=== PATIENT | female | born 1995 | race Caucasian/White ===

== ENCOUNTER 2017-12-08 18:38 | Day surgery (SDC) | payer OTHER ==
[2017-12-08 19:36] VITALS: BMI 48.8
--- NOTE | 2017-12-08 20:40 | PDOC.FPROB ---
FMR OB H&P: HPI - History of Present Illness Chief Complaint: vaginal and right leg pain History of Present Illness: 22YO female @ 31.5 weeks by 11.3 week debby presents complaining of vaginal and right leg pain that has been ongoing for the last few days but has gotten significantly worse today. The patient states that the pain began a few days ago after she used the bathroom on a public bus. She reports the pain as being episodic lasting 10 minutes or more, 9/10 in severity, and sometimes dull or pressure-like and other times sharp in character. She says that the pain is exacerbated by urinating and occasionally relieved by drinking water. Also says that the pain radiates down her right leg. Denies any associated vaginal bleeding, discharge or leaking fluid. Says she has never had an STI and was last sexually active 2 weeks ago. Also denies any associated fever/chills, SOB, chest or abdominal pain but does endorse dysuria. FMR OB H&P: Current - Care : 3 Para: 2 Gestational age: 31.5 weeks by 11.3 week debby Due date: Course/Complications: Uncomplicated . - OB Labs Blood type: O RH: positive Antibody Screen: negative HIV: negative RPR: negative HepBsAg: negative Rubella: immune Quad screen: negative Gonorrhea: negative Chlamydia: negative 1 hour gtt: 109 A1c: 4.6 FMR OB H&P: History - Past Medical History PMH: None. - OB History OB History: 2 previous deliveries were at term via . History of UTIs in previous pregnancies. - MEDICAL CSR History MEDICAL CSR History: No history of previous STIs. - Surgical History Sx History: C/S x 2 - Social History Social History: No current tobacco, EtOH or drug abuse. FMR OB H&P: Medications - Current Home Medications: Medication Instructions Recorded Confirmed Type Vitamin 1 tab PO DAILY tab 07/22/16 12/08/17 Rx Fluconazole [Diflucan] 150 mg PO ONE #1 tablet 12/08/17 Rx Allergies/Adverse Reactions: Allergies Allergy/AdvReac Type Severity Reaction Status Date / Time No Known Allergies Allergy Verified 12/08/17 19:28 FMR OB H&P: ROS - Review of Systems General: denies: fever/chills Cardiovascular: denies: chest pain, edema Respiratory: denies: shortness of breath Gastrointestinal: reports: nausea. denies: abdominal pain, diarrhea, constipation Genitourinary (Female): reports: dysuria, vaginal pain, vaginal pressure. denies: hematuria, vaginal discharge, vaginal bleeding, contractions Musculoskeletal: reports: pain, tenderness FMR OB H&P: Physical Exam - Physical Exam General: NAD, awake, alert and oriented HEENT: normocephalic and atraumatic Heart: RRR, normal S1/S2, no edema General: CTAB, no respiratory distress Abdomen: soft, gravid, non-tender, bowel sound present Musculoskeletal: FROM in all four extremities, other (Pain to palpation in R thigh and calf. Full ROM and sensation. No swelling or erythema noted.) Neurological: cranial nerves II through XII intact, sensation to pain,touch and proprioception grossly normal, no focal deficit Skin: no rash, good tugor - Pelvic Exam Vulva: normal hair distribution, no discharge, no blood, normal rugae (No erythema or irritation of vuvla or vaginal vault. No discharge noted on speculum exam.) FMR OB H&P: A/P - Problem List (1) Vaginal pain Current Visit: Yes Status: Acute Code(s): R10.2 - PELVIC AND PERINEAL PAIN Assessment and Plan: - Likely due to a UTI but cannot r/o a STI, BV or candidiasis. No concern for abruption or labor at this time as patient had no contractions on NST, FHT was reactive, and there was no vaginal bleeding or abdominal pain on exam. - Straight cath urine was done & UA was clear. Urine Cx pending. - Performed a speculum & obtained VP3 & G/C swabs. Will f/u with patients regarding any positive test results. - Will prophylactically treat for candidiasis w/ 150mg PO diflucan now & prescribe a second dose to take at home. - Will instruct patient to follow-up with PCP within 1 week. (2) Current Visit: Yes Status: Acute Qualifiers: Weeks of gestation: 31 weeks Qualified Code(s): Z3A.31 - 31 weeks gestation of Assessment and Plan: 22YO @ 31.5 weeks by 11.3 week sono. - Uncomplicated . - No concern for labor at this time. - Will instruct to follow-up with PCP for routine care. Discussion: Date/Time: 12/08/172038 This H&P was discussed with Dr. Johnson and Dr. Parra who agree with the above documentation and plan.
[2017-12-08 21:32] LABS: Bilirubin Negative (Negative); Blood, Urine Negative (Negative); Clarity CLEAR (Clear); Glucose, Urine (Dipstick) Negative (Negative); Leukocyte Negative (Negative); Nitrite Negative (Negative); Protein, Urine (Dipstick) Negative (Neg-Trace); Urobilinogen 0.2 mg/dL (0.2-1.0)
[2017-12-08] MEDS ORDERED: Fluconazole 100 MG TAB PO SCH (21:33)
[2017-12-08 21:34] LABS: Bacteria/HPF None Seen HPF (None Seen); Hyaline Casts/LPF 4-6 HYALINE CAST LPF (0-3 Hyaline); Pathc Cast-AUWi Flag 1.74 (0-2.49); RBC/HPF None Seen HPF (0-3); Squamous Epithelial 0-3 HPF (0-3); WBC/HPF 0-3 HPF (0-3)
[2017-12-09 23:19] LABS: Chlamydia by PCR Not Detected (NotDetected); GC by PCR Not Detected (NotDetected)
== END 2017-12-08 22:20 | disposition home or self-care (01) ==
LOC: L&D/OP 18:38
PROVIDERS: ATTEND Student in an Organized Health Care Education/Training Program
DX: O99.89 Other specified diseases and conditions complicating pregnancy, childbirth and the puerperium (principal); R10.2 Pelvic and perineal pain; Z3A.31 31 weeks gestation of pregnancy
CPT/HCPCS: 51701; 81001; 87086; 87480; 87491; 87510; 87591; 87660; 99284

== ENCOUNTER 2018-01-28 05:57 | Inpatient (IN) | payer OTHER ==
--- NOTE | 2018-01-27 14:49 | PDOC.LDHP ---
Labor and Delivery H&P Chief complaint: scheduled section HPI: 22 y/o @ 39w0d by 11w3d renayo presents for scheduled section. The patient has 2 prior c-sections. She reports contractions that started two days ago and are every 5 minutes. She denies LOF, vaginal bleeding, vaginal d/c , headaches, vision changes, LE swelling. Reports movement. Current gestational age (weeks): 39 (39w0d) Due date: 02/04/18 Dating criteria: first trimester ultrasound Grav: 3 Para: 2 OB History Details: 2 prior term c-sections Current complications: none Abnormal US findings: Yes (Hadlock 95%tile, Polyhydramnios (now resolved)) Past Medical History: MDD, not currently depressed Current medications: pre-zac vitamins Previous surgical history: low tranverse CS (x2) Social history: none - Physical Exam Vital signs reviewed and normal: yes General: NAD, resting Heart: RRR Lungs: CTAB Abdomen: gravid Extremeties: no edema FHT: category 1 (baseline 120-125), variability present (mod variability) - OB Labs Blood type: A RH: positive Antibody Screen: negative HIV: negative RPR: negative HEPSAg: negative 1 hour GCT: negative GBS: negative Urine drug screen: not done Rubella: immune Additional Labs: Zika negative - Assessment L&D Assessment: scheduled repeat section - Plan Plan: to OR for section, informed consent obtained, anesthesia consult for pain management -: -LR @ 125 -Ancef for prophylaxis <Kae Dow - Last Filed: 01/28/18 06:56> <Tom Carbajal - Last Filed: 01/28/18 11:47> Allergies/Adverse Reactions: Allergies Allergy/AdvReac Type Severity Reaction Status Date / Time No Known Allergies Allergy Verified 01/28/18 06:56 Attending Addendum - Attending Addendum Date/Time: 01/28/18 1147 I personally evaluated the patient and discussed the management with Dr. Dow. I agree with the History, Examination, Assessment and Plan documented above with any addition or exceptions noted below. <Tom Carbajal - Last Filed: 01/28/18 11:47>
[~2018-01-28 05:57] MED LIST: Bicitra 30 ML UDCUP PO SCH; CEFAZOLIN/Water 2 GM/20 ML SYRINGE SLOW IVP SCH; Ondansetron HCl/PF 4 MG/2 ML Vial IVP PRN; Promethazine HCl 25 MG/ML VIAL IM PRN
[2018-01-28] MEDS: Lactated Ringer's 1,000 ML IV SCH ×2 (06:30→14:18)
[2018-01-28] MEDS ORDERED: Morphine PF 1 MG/ML SYR ONE (06:37)
[2018-01-28] MEDS ORDERED: Fentanyl 100 MCG/2 ML VIAL ONE (06:37)
[2018-01-28 06:39] LABS: Mean Corpuscular HGB CONC 32.8 g/dL (32.0-36.0); Mean Corpuscular Hemoglobin 27.6 pg (27.0-31.0); Mean Platelet Volume 9.7 fL (7.4-10.4); Platelet Count 244 thou/uL (130-400); RBC Distribution Width 14.6 % (11.5-14.5); Red Blood Cell (RBC) Count 4.34 mill/uL (4.20-5.40); White Blood Cell (WBC) Count 8.8 thou/uL (4.8-10.8)
[2018-01-28] MEDS ORDERED: Succinylcholine Chloride 20 MG/ML 10 ml SYRINGE FS ONE (06:39)
[2018-01-28] MEDS ORDERED: Oxytocin 10 UNITS/ML VIAL ONE ×3 (06:39→09:24)
[2018-01-28] MEDS ORDERED: PHENYLEPHRINE-NS 100 MCG/ML 10 ML SYRINGE ONE (06:39)
[2018-01-28] MEDS ORDERED: Ondansetron HCl/PF 4 MG/2 ML Vial ONE ×4 (06:39→09:58)
[2018-01-28] MEDS ORDERED: ePHEDrine/0.9% NaCl/PF SYRINGE 50 mg/10 ml ONE ×3 (07:12→09:58)
[2018-01-28 07:17] LABS: HBSAg Index 0.16 S/CO (0-0.99); Hep B Surf Ag Non-Reactive S/CO (NonReactive); Syphilis Antibody Nonreactive (Nonreactive); Syphilis Antibody Index 0.58 S/CO (<1.00 Non-Reactive)
[2018-01-28] MEDS ORDERED: Bupivacaine 0.75% W/DEXTROSE 8.25% 2 ML AMP ONE (07:17)
[2018-01-28] MEDS ORDERED: Lidocaine 2% PF Inj 2 ML VIAL ONE ×3 (07:28→07:29)
[2018-01-28] MEDS ORDERED: Glycopyrrolate 0.2 MG/ML 5 ML SYRINGE ONE (08:11)
[2018-01-28] MEDS ORDERED: Atropine Sulfate 1 mg/10 ml Syringe ONE (08:11)
[2018-01-28] MEDS ORDERED: diphenhydrAMINE 50 MG/ML VIAL IVP PRN (08:53)
[2018-01-28] MEDS ORDERED: Ondansetron HCl/PF 4 MG/2 ML Vial IVP PRN ×2 (08:53→10:16)
[2018-01-28] MEDS ORDERED: Ketorolac Tromethamine 30 MG/ML VIAL IVP PRN (08:53)
[2018-01-28] MEDS ORDERED: Promethazine HCl 25 MG SUPP PR PRN (08:53)
[2018-01-28] MEDS ORDERED: Naloxone HCl 0.4 mg/ml Vial IVP PRN ×2 (08:53)
[2018-01-28] MEDS ORDERED: Eucerin (Mineral Oil/Petrolatum,White) 30 gm Jar TOP PRN (08:53)
[2018-01-28] MEDS ORDERED: Naloxone HCl 0.4 mg/ml Vial IV PRN (08:53)
[2018-01-28] MEDS ORDERED: Promethazine HCl 25 MG/ML VIAL IM PRN (08:53)
[2018-01-28] MEDS ORDERED: Midazolam HCl 2 mg/2 ml Vial ONE (08:58)
[2018-01-28] MEDS ORDERED: Communication Order-Pharmacy FS SCH (09:00)
[2018-01-28] MEDS ORDERED: Ketamine 50 MG/ML VIAL ONE (09:13)
[2018-01-28] MEDS ORDERED: Ketorolac Tromethamine 30 MG/ML VIAL ONE ×2 (09:43→09:58)
--- NOTE | 2018-01-28 09:57 | PDOC.OPDEL ---
OB Operative/Delivery Note Delivery Dr/Surgeon: Dr. Dow, Dr. Roque, with Dr. Carbajal attending Pre-Delivery Diagnosis: scheduled section Procedure/Post Delivery Dx: primary low transverse CS Weeks gestation: 39 (39w0d) Anesthesia: spinal - Findings A Sex: male Weight: 3.885 kg - 1 min: 8 - 5 min: 9 - Additional Findings/Plan Placenta delivered: spontaneous findings: low transverse hysterotomy without extension Compilations/Other Findings: Preoperative Diagnosis: 1)Term intrauterine 2)Previous x2 3)h/o polyhydramnios (resolved) 4)Morbid Obesity Postoperative Diagnosis: 1)Term intrauterine , delivered 2)Previous x2 3)h/o polyhydramnios (resolved) 4)Morbid Obesity Anesthesia: spinal Indications: The patient is a 22 year old female at 39w0d gestation who presents for a repeat scheduled . Procedure in Detail: After risks, benefits, and alternatives were explained to the patient, she gave informed consent. Pre-operative antibiotics included Cefazolin 2 gram IV. The patient was taken to the operating room and spinal anesthesia was initiated. She was placed in the supine position with a left tilt and prepped and draped in usual sterile fashion. A Pfannenstiel incision was made with a scalpel and carried down to the level of the fascia which was sharply nicked. The fascial cut was extended bilaterally with Ceron scissors. The inferior and superior edges of the cut fascial edges were elevated with Jayesh clamps and the underlying rectus muscles were sharply and bluntly dissected free of dense adhesions. The recti were divided digitally and retracted manually. The inferior aspect of the rectus in the midline was with the bovie. The peritoneum was entered bluntly and retracted manually. Aric-O was placed, however it was found to have omentum trapped under it, so it was removed. Bladder blade was placed. A low transverse score was made with the scalpel and the uterus was entered in the midline bluntly. Clear fluid was seen. The hysterotomy was extended manually in a cephalocaudal fashion. The infant was noted to be vertex and was easily delivered by fundal pressure. Mouth and nares were bulb suctioned. Cord clamped and cut and grossly normal male was handed to waiting nurse. Cord blood was obtained. Placenta was spontaneously delivered, found to be intact with 3 vessel cord and discarded. The uterus was externalized and the endometrium was curetted with a dry lap. The bladder blade was replaced and the uterus was closed with a running locking 1-0 monocryl. Following this hemostasis was noted , so no imbricating layer was required. The abdomen was suctioned free of clots. The uterus was internalized and the hysterotomy was again noted to be hemostatic. The rectus muscles were examined for bleeding and was found to be hemostatic. The fascia was closed with a running non-locking 0-Vicryl suture. The subcutaneous tissue was irrigated and there were a few bleeders that were cauterized with the bovie. Hemostasis was then noted. The subcutaneous tissue was approximated with interrupted sutures using 2-0 Plaingut. The skin was approximated with anny and a pressure dressing was placed. All counts were correct. The patient tolerated the procedure well and was taken to the recovery room in stable condition. Time of Delivery: 0840 on 01/28/18 Quantitative Blood Loss: 920 ml Complications: None Specimens: Cord blood sent to lab for blood type Findings: Grossly normal male infant with apgars of 8 and 9 at 1 and 5 minutes respectively. Grossly normal placenta with 3 vessel cord discarded. Drains: Woodard to gravity draining clear urine Post delivery plan: routine recovery <Kae Dow - Last Filed: 01/28/18 09:55> Attending Addendum - Attending Addendum Date/Time: 01/28/18 1149 I was present for, supervised, and assisted with the procedure. <Tom Carbajal - Last Filed: 01/28/18 11:50>
[2018-01-28] MEDS ORDERED: Meperidine HCl/PF 25 MG/ML VIAL SLOW IVP PRN (10:16)
[2018-01-28] MEDS ORDERED: HYDROmorphone 2 MG/ML VIAL SLOW IVP PRN (10:16)
[2018-01-28] MEDS ORDERED: Ketorolac Tromethamine 30 MG/ML VIAL IVP SCH (10:30)
[2018-01-28] MEDS ORDERED: Meperidine HCl/PF 25 MG/ML VIAL ONE (11:13)
[2018-01-28] MEDS ORDERED: Lanolin Ointment 7 GM TUBE TOP PRN (12:16)
[2018-01-28] MEDS ORDERED: NS / Oxytocin 40 units/1000ml 1,000 ML IV SCH (12:16)
[2018-01-28] MEDS: Ibuprofen 800 MG TAB PO SCH ×2 (13:58→21:48)
--- NOTE | 2018-01-28 14:59 | PDOC.PP ---
Post Progress Note Post Day #: 0 Subjective: Patient seen 4 hour post c section. She feels well overall, though still has some abd pain. She feels that it is bearable. She is starting clear fluid. She has not been out of bed yet. Has not voided yet. PO intake tolerated: yes Flatus: no Ambulation: no Vital Signs (12 hours) Temp Pulse Resp BP Pulse Ox 01/28/18 14:10 98.1 F 94 16 107/60 97 01/28/18 13:00 98.3 F 97 18 104/59 L 97 01/28/18 12:00 99 F 99 18 110/57 L 98 01/28/18 06:44 98.5 F 75 16 111/74 98 Weight Weight 261 g - Physical Examination General: NAD Cardiovascular: no m/r/g, RRR Respiratory: clear to auscultation bilaterally, non-labored breathing Abdominal: + bowel sounds, lochia, appropriately TTP Extremities: negative homans (B) Skin: no rash Deviation from normal: Bandage over incision site Neurological: no gross focal deficits Psychiatric: normal affect Result Diagrams: 01/28/18 06:31 Additional Labs: Post Labs Blood Type A POSITIVE 01/28/18 06:31 Hep Bs Antigen Non-Reactive S/CO (NonReactive) 01/28/18 06:31 (1) Delivered by section Code(s): O82 - ENCOUNTER FOR DELIVERY WITHOUT INDICATION Status: Acute Comment: 4 hour post c section. Doing well at this time. Continue with symptomatic management. Likely 2 day stay before dscharge. (2) Morbid obesity Code(s): E66.01 - MORBID (SEVERE) OBESITY DUE TO EXCESS CALORIES Status: Chronic Comment: Advised follow up with outpatient pcp for lifestyle management. <Jamie Wade M - Last Filed: 01/28/18 14:57> Vital Signs (12 hours) Temp Pulse Resp BP Pulse Ox 01/29/18 04:30 98.1 F 96 18 118/65 99 01/29/18 00:34 98.2 F 90 18 108/64 98 Weight Weight 261 g Result Diagrams: 01/29/18 05:07 Additional Labs: Post Labs Blood Type A POSITIVE 01/28/18 06:31 Hep Bs Antigen Non-Reactive S/CO (NonReactive) 01/28/18 06:31 <Tom Carbajal - Last Filed: 01/29/18 08:55> Attending Addendum - Attending Addendum Date/Time: 01/29/18 0854 I personally evaluated the patient and discussed the management with Dr. Olivier and Sheri yesterday. I agree with the History, Examination, Assessment and Plan documented above with any addition or exceptions noted below. <Tom Carbajal - Last Filed: 01/29/18 08:55>
[2018-01-28] MEDS ORDERED: Adacel (T-DAP) 0.5 ML VIAL IM ONE (16:00)
[2018-01-28] MEDS ORDERED: Acetaminophen 325 MG TAB PO PRN (18:22)
[2018-01-28] MEDS: Ferrous Sulfate 325 MG TAB PO SCH (21:37)
[2018-01-28] MEDS: Docusate Calcium (SURFAK) 240 MG CAP PO SCH (21:48)
[2018-01-29] MEDS: HYDROcodone/Acetaminophen 5/325 mg Tablet PO PRN ×5 (00:30→20:18)
[2018-01-29 05:23] LABS: Hemoglobin 9.4 g/dL (12.0-16.0); Mean Corpuscular HGB CONC 32.5 g/dL (32.0-36.0); Mean Corpuscular Hemoglobin 27.6 pg (27.0-31.0); Mean Platelet Volume 9.3 fL (7.4-10.4); Platelet Count 185 thou/uL (130-400); RBC Distribution Width 14.6 % (11.5-14.5); White Blood Cell (WBC) Count 8.8 thou/uL (4.8-10.8)
[2018-01-29] MEDS: Ibuprofen 800 MG TAB PO SCH ×3 (05:32→23:13)
--- NOTE | 2018-01-29 08:52 | PDOC.PP ---
Post Progress Note Post Day #: 1 Subjective: s/p rLTCS, POD1. C/o of mild pain at incision site. Denies fever, chills , SOB, chest pain. Nurse reports 168cc of blood loss via pads, non-concerning. Pt .denies lightheadedness, dizziness, palpitations. Ambulating, tolerated CLD well, urinating. No flatus or BM yet. PO intake tolerated: yes Flatus: no Ambulation: yes Vital Signs (12 hours) Temp Pulse Resp BP Pulse Ox 01/29/18 04:30 98.1 F 96 18 118/65 99 01/29/18 00:34 98.2 F 90 18 108/64 98 Weight Weight 261 g - Physical Examination General: NAD Cardiovascular: RRR Respiratory: clear to auscultation bilaterally Abdominal: lochia, appropriately TTP Skin: CS incision dry & intact, no rash Neurological: no gross focal deficits Psychiatric: A&Ox3, normal affect Result Diagrams: 01/29/18 05:07 Additional Labs: Post Labs Blood Type A POSITIVE 01/28/18 06:31 Hep Bs Antigen Non-Reactive S/CO (NonReactive) 01/28/18 06:31 - Assessment/Plan 1. s/p rLTCS, POD 1 -AVSS, pain at incision site, controlled with current pain regimen -H/H decreased from 12 to 9 today, (QBL 920), will repeat AM H/H if becomes tachycardic or symptomatic -Will advance to RD today 2. Morbid obesity -Counseled pt to follow up with PCP for lifestyle mgmt Dispo: Will keep to at least 48 hours due to C/S and to allow for rest and recovery. <Emi Olivier - Last Filed: 01/29/18 08:53> Vital Signs (12 hours) Temp Pulse Resp BP Pulse Ox 01/30/18 04:00 98 F 90 20 128/68 99 Weight Weight 261 g Result Diagrams: 01/29/18 05:07 Additional Labs: Post Labs Blood Type A POSITIVE 01/28/18 06:31 Hep Bs Antigen Non-Reactive S/CO (NonReactive) 01/28/18 06:31 <Tom Carbajal - Last Filed: 01/30/18 09:52> Attending Addendum - Attending Addendum Date/Time: 01/30/18 0367 I personally evaluated the patient and discussed the management with Dr. Olivier yesterday. I agree with the History, Examination, Assessment and Plan documented above with any addition or exceptions noted below. <Tom Carbajal A - Last Filed: 01/30/18 09:52>
[2018-01-29] MEDS: Ferrous Sulfate 325 MG TAB PO SCH ×2 (09:50→20:19)
[2018-01-29] MEDS: Simethicone Chewable 80 MG TAB PO PRN (09:50)
[2018-01-29] MEDS: Prenatal Vitamin 1 TAB PO SCH ×2 (09:50→09:51)
[2018-01-29] MEDS: Docusate Calcium (SURFAK) 240 MG CAP PO SCH ×2 (09:52→20:10)
[2018-01-30] MEDS: Ibuprofen 800 MG TAB PO SCH ×2 (04:40→13:19)
[2018-01-30] MEDS: HYDROcodone/Acetaminophen 5/325 mg Tablet PO PRN ×3 (04:49→13:19)
[2018-01-30 04:59] VITALS: BP 128/68; TEMP 98
[2018-01-30] MEDS: Prenatal Vitamin 1 TAB PO SCH (09:17)
[2018-01-30] MEDS: Ferrous Sulfate 325 MG TAB PO SCH (09:18)
[2018-01-30] MEDS: Simethicone Chewable 80 MG TAB PO PRN (09:18)
[2018-01-30] MEDS: Docusate Calcium (SURFAK) 240 MG CAP PO SCH (09:19)
--- NOTE | 2018-01-30 10:08 | PDOC.PP ---
Post Progress Note Post Day #: 2 Subjective: No complaints overnight. Tolerating RD well, BM, voiding, ambulating. Still mild pain at incision site which is relieved with current pain medication regimen. PO intake tolerated: yes Flatus: yes Ambulation: yes Vital Signs (12 hours) Temp Pulse Resp BP Pulse Ox 01/30/18 04:00 98 F 90 20 128/68 99 Weight Weight 261 g - Physical Examination General: NAD Cardiovascular: RRR Respiratory: non-labored breathing Abdominal: no distention Skin: CS incision dry & intact Neurological: no gross focal deficits Psychiatric: A&Ox3, normal affect Result Diagrams: 01/29/18 05:07 Additional Labs: Post Labs Blood Type A POSITIVE 01/28/18 06:31 Hep Bs Antigen Non-Reactive S/CO (NonReactive) 01/28/18 06:31 - Assessment/Plan 1. s/p rLTCS, POD 2 -AVSS, pain at incision site, controlled with current pain regimen, tolerating RD, had BM, ambulating well -will remove anny today, plans to f/u with Dr. Owusu in two weeks at [facility] -will send home with pain meds to help with pain control 2. Morbid obesity -Counseled pt to follow up with PCP for lifestyle mgmt Dispo: d/c today after staple removal <Emi Olivier - Last Filed: 01/30/18 10:06> Weight Weight 261 g Result Diagrams: 01/29/18 05:07 Additional Labs: Post Labs Blood Type A POSITIVE 01/28/18 06:31 Hep Bs Antigen Non-Reactive S/CO (NonReactive) 01/28/18 06:31 <Tom Carbajal - Last Filed: 02/01/18 15:45> Attending Addendum - Attending Addendum Date/Time: 02/01/18 9979 I personally evaluated the patient and discussed the management with Dr. Olivier on 01/30/18. I agree with the History, Examination, Assessment and Plan documented above with any addition or exceptions noted below. <Tom Carbajal - Last Filed: 02/01/18 15:45>
== END 2018-01-30 15:30 | disposition home or self-care (01) | DRG 765 ==
LOC: L&D 05:57 → 3SE 12:16
PROVIDERS: ADMIT Family Medicine; ATTEND Family Medicine
PROC: 10D00Z1 Extraction of Products of Conception, Low, Open Approach (ICD-10-PCS; principal; 2018-01-28)
PROC: 10907ZC Drainage of Amniotic Fluid, Therapeutic from Products of Conception, Via Natural or Artificial Opening (ICD-10-PCS; 2018-01-28)
DX: O34.211 Maternal care for low transverse scar from previous cesarean delivery (principal); O40.3XX0 Polyhydramnios, third trimester, not applicable or unspecified; Z3A.39 39 weeks gestation of pregnancy; Z37.0 Single live birth; O99.214 Obesity complicating childbirth; E66.01 Morbid (severe) obesity due to excess calories
CPT/HCPCS: 36415; 51702; 76815; 85027; 86780; 86850; 86900; 86901; 87340; J0131; J0461; J1885; J2175; J2250; J2274; J2405; J2590; J3010; J3490

== ENCOUNTER 2018-04-12 16:29 | Inpatient (IN) | payer OTHER ==
[~2018-04-12 16:29] MED LIST changes: -Bicitra 30 ML UDCUP PO SCH; -CEFAZOLIN/Water 2 GM/20 ML SYRINGE SLOW IVP SCH; +ISOVUE-370 76%-LOCM 1 ML ONE; -Ondansetron HCl/PF 4 MG/2 ML Vial IVP PRN; -Promethazine HCl 25 MG/ML VIAL IM PRN
[2018-04-12 17:07] LABS: #Eosinphils 0.3 thou/uL (0.0-0.7); #Lymphocytes 1.2 thou/uL (1.20-3.40); #Monocytes 0.7 thou/uL (0.11-0.59); #Neutrophils 11.7 thou/uL (1.40-6.50); %Basophils 0.1 % (0.0-1.0); %Eosinophils 2.4 % (0.0-10.0); %Lymphocytes 8.8 % (21.0-51.0); %Monocytes 4.7 % (0.0-10.0); Hemoglobin 11.7 g/dL (12.0-16.0); Mean Corpuscular HGB CONC 32.1 g/dL (32.0-36.0); Mean Corpuscular Hemoglobin 26.4 pg (27.0-31.0); Mean Corpuscular Volume 82.4 fL (78.0-98.0); Mean Platelet Volume 7.7 fL (7.4-10.4); Platelet Count 361 thou/uL (130-400); Red Blood Cell (RBC) Count 4.44 mill/uL (4.20-5.40); White Blood Cell (WBC) Count 13.9 thou/uL (4.8-10.8)
[2018-04-12 17:27] LABS: Anion Gap 13 mmol/L (10-20); BUN (Urea Nitrogen) 11 mg/dL (7.0-18.7); Calc. Creatinine Clearance 0 mL/min (70-130); Calcium 9.4 mg/dL (7.8-10.44); Carbon Dioxide 24 mmol/L (22-29); Chloride 105 mmol/L (98-107); Estimated GFR-MDRD Greater than 90; Glucose 125 mg/dL (70-105); Potassium 3.8 mmol/L (3.5-5.1); Sodium 138 mmol/L (136-145)
[2018-04-12 17:40] LABS: CK (CPK) 41 U/L (29-168); Lipase 8 U/L (8-78)
[2018-04-12] MEDS ORDERED: Fentanyl 100 MCG/2 ML VIAL ONE (17:52)
[2018-04-12] MEDS ORDERED: Lorazepam 2 MG/ML VIAL ONE (17:52)
[2018-04-12] MEDS ORDERED: Ondansetron PF 4 MG/2 ML Vial ONE (17:52)
[2018-04-12 17:53] LABS: Albumin 4.2 g/dL (3.5-5.0)
[2018-04-12 17:56] LABS: Globulin 4.2 g/dL (2.4-3.5); Protein, Total 8.4 g/dL (6.0-8.3)
[2018-04-12 17:57] LABS: Bilirubin, Total 0.5 mg/dL (0.2-1.2)
[2018-04-12 17:58] LABS: Alkaline Phosphatase 103 U/L (40-150)
[2018-04-12 18:00] LABS: BHCG - Serum Negative (NEGATIVE); Pregs Control Background? CLEAR/WHITE (CLR/WHITE); Pregs Control Bar Appear? YES (CONTROL BAR)
[2018-04-12 18:01] LABS: ALT (SGPT) 33 U/L (8-55); AST (SGOT) 21 U/L (5-34)
[2018-04-12 18:23] LABS: CKMB 0.5 ng/mL (0-6.6); Troponin I Less than 0.010 ng/mL (< 0.028)
[2018-04-12] MEDS ORDERED: Morphine 4 MG/ML VIAL ONE (18:53)
[2018-04-12] MEDS ORDERED: cefTRIAXone\\ROCEPHIN 2 GM VIAL ONE (18:54)
[2018-04-12] MEDS ORDERED: Azithromycin 500 MG VIAL ONE (18:54)
--- NOTE | 2018-04-12 20:27 | CT ---
CT ANGIO OF CHEST AND ABDOMEN PERFORMED WITH INTRAVENOUS CONTRAST ENHANCEMENT WITH 3D RECONSTRUCTIONS : 04/12/18 HISTORY: Severe gradual chest pain left upper chest and left upper flank. Patient's body habitus limits detail. The bolus is very suboptimal and is not diagnostic for the elim ination of the possibility of dissection. Lungs show some patchy infiltrate in the apical posterior segment of the left upper lobe and some min imal patchy infiltrative changes of the right mid lung field. Area of more dense pneumonic consolidat ion is seen within the region of the lingula. There is atelectatic changes in the lung bases. There i s no significant mediastinal or hilar adenopathy appreciated. The thoracic aorta is normal in caliber as stated. It is difficult to exclude the possibility of dissection, but I do not see any features t hat would suggest dissection. Opacification of the aortic arch is not optimal but I do not see any si gns that would suggest any type of dissection in this region. CT ANGIO OF ABDOMEN PERFORMED WITH INTRAVENOUS CONTRAST ENHANCEMENT AND 3D RECONSTRUCTIONS: The liver is enlarged at 23 cm. Spleen measures approximately 9 to 10 cm. Pancreas and gallbladder re gions appear unremarkable. Right and left adrenal glands and right and left kidneys are normal in siz e. There is small nonspecific periaortic lymph nodes. The abdominal aorta is normal in caliber. No an eurysm. No obvious evidence for any type of dissection. IMPRESSION: 1. Suboptimal examination for dissection. I do not see any features that would suggest dissectio n and the thoracic and abdominal aorta is normal in caliber. 2. Infiltrative appearing lung changes with a more dense area of consolidation within the lingul a but some patchy infiltrative changes also seen in the apical posterior segment of the left upper lo be and right mid lung field and superior segment of the right lower lobe. 3. Hepatomegaly. POS: [facility] [place]
[2018-04-12] MEDS ORDERED: Acetaminophen 325 MG TAB ONE (21:16)
[2018-04-12] MEDS ORDERED: Acetaminophen 325 MG TAB PO PRN (22:49)
[2018-04-12] MEDS ORDERED: Sodium Chloride 0.9% 1,000 ML IV SCH (22:49)
[2018-04-12] MEDS ORDERED: Ondansetron ODT 4 MG TAB SL PRN (22:49)
[2018-04-12] MEDS ORDERED: Ondansetron PF 4 MG/2 ML Vial IVP PRN (22:49)
[2018-04-12] MEDS ORDERED: HYDROcodone/Acetaminophen 5/325 mg Tablet PO PRN (22:49)
[2018-04-12] MEDS: HYDROcodone/Acetaminophen 5/325 mg Tablet PO PRN (23:00)
[2018-04-13] MEDS ORDERED: Simethicone Chewable 80 MG TAB PO PRN (00:47)
[2018-04-13] MEDS ORDERED: ZOSYN IVPB PRN (00:51)
[2018-04-13 00:56] VITALS: BMI 40.7
[2018-04-13] MEDS: Piperacillin/Tazobactam 3.375 GM in Sodium Chloride 0.9% 100 ML IVPB SCH ×2 (01:50→08:02)
[2018-04-13] MEDS: traMADol HCl 50 MG TAB PO PRN ×2 (02:12→08:00)
[2018-04-13] MEDS: HYDROcodone/Acetaminophen 5/325 mg Tablet PO PRN (04:34)
[2018-04-13 05:15] LABS: #Eosinphils 0.1 thou/uL (0.0-0.7); #Lymphocytes 1.9 thou/uL (1.20-3.40); %Basophils 0.1 % (0.0-1.0); %Eosinophils 0.8 % (0.0-10.0); %Lymphocytes 12.7 % (21.0-51.0); %Monocytes 6.5 % (0.0-10.0); %Neutrophils 79.9 % (42.0-75.0); Hemoglobin 10.4 g/dL (12.0-16.0); Mean Corpuscular HGB CONC 31.3 g/dL (32.0-36.0); Mean Corpuscular Volume 83.1 fL (78.0-98.0); Mean Platelet Volume 7.6 fL (7.4-10.4); Platelet Count 327 thou/uL (130-400); RBC Distribution Width 12.9 % (11.5-14.5)
[2018-04-13 05:21] LABS: Anion Gap 12 mmol/L (10-20); BUN (Urea Nitrogen) 5 mg/dL (7.0-18.7); Calc. Creatinine Clearance 265 mL/min (70-130); Calcium 8.6 mg/dL (7.8-10.44); Carbon Dioxide 22 mmol/L (22-29); Chloride 107 mmol/L (98-107); Estimated GFR-MDRD Greater than 90; Glucose 113 mg/dL (70-105); Potassium 3.8 mmol/L (3.5-5.1); Sodium 137 mmol/L (136-145)
[2018-04-13] MEDS ORDERED: Azithromycin 500 MG in Sodium Chloride 0.9% 250 ML 250 ML IVPB SCH (05:30)
[2018-04-13] MEDS: Docusate 100 MG CAP PO SCH ×2 (08:01→20:00)
[2018-04-13] MEDS: Ferrous Sulfate 325 MG TAB PO SCH ×2 (08:03→17:23)
[2018-04-13] MEDS ORDERED: Morphine 2 MG/ML SYRINGE SLOW IVP PRN (10:56)
--- NOTE | 2018-04-13 11:44 | PDOC.PN ---
- Subjective Encounter Start Date: 04/13/18 Encounter Start Time: 09:45 Subjective: c/o left chest pain on taking deep breaths -: no sputum production - Objective Resuscitation Status - Order Detail: 04/13/18 00:52 Resuscitation Status Routine Resuscitation Status: FULL: Full Resuscitation MAR Reviewed: Yes Vital Signs & Weight: Vital Signs (12 hours) Temp Pulse Resp BP BP Pulse Ox 04/13/18 11:14 98.4 F 111 H 18 122/81 92 L 04/13/18 07:44 98.3 F 109 H 22 H 109/74 93 L 04/13/18 07:40 93 L 04/13/18 07:20 100 20 04/13/18 05:59 99.8 F H 114 H 20 94 L 04/13/18 04:00 102.8 F H 127 H 20 121/84 04/13/18 03:00 93 L 04/13/18 02:53 126 H 28 H 93 L 04/13/18 00:00 100.3 F H 126 H 20 127/84 93 L Weight Weight 230 lb I&O: 04/12/18 04/13/18 04/14/18 06:59 06:59 06:59 Intake Total 1700 Balance 1700 Result Diagrams: 04/13/18 04:42 04/13/18 04:42 Phys Exam - Physical Examination HEENT: PERRLA, moist MMs Neck: no JVD, supple Respiratory: no wheezing, no rales Cardiovascular: RRR, no significant murmur Gastrointestinal: soft, non-tender, positive bowel sounds Musculoskeletal: no edema, pulses present Neurological: non-focal, moves all 4 limbs Psychiatric: normal affect, A&O x 3 Dx/Plan (1) PNA (pneumonia) Code(s): J18.9 - PNEUMONIA, UNSPECIFIED ORGANISM Status: Acute Qualifiers: Pneumonia type: due to unspecified organism Laterality: bilateral Lung location: lower lobe of lung Qualified Code(s): J18.1 - Lobar pneumonia, unspecified organism (2) Chest pain Code(s): R07.9 - CHEST PAIN, UNSPECIFIED Status: Acute Qualifiers: Chest pain type: chest pain on breathing Qualified Code(s): R07.1 - Chest pain on breathing; R07.81 - Pleurodynia (3) Chronic anemia Code(s): D64.9 - ANEMIA, UNSPECIFIED Status: Chronic (4) Sepsis Code(s): A41.9 - SEPSIS, UNSPECIFIED ORGANISM Status: Acute Qualifiers: Sepsis type: sepsis due to unspecified organism Qualified Code(s): A41.9 - Sepsis, unspecified organism (5) Morbid obesity Code(s): E66.01 - MORBID (SEVERE) OBESITY DUE TO EXCESS CALORIES Status: Chronic - Plan is on ceftriaxone and zithromax -: gentle iv hydration, has not had dinner or breakfast due to pain -: nebs, i.spirometry, to amb in hallway, deep breathing exercises -: pulm consultation, no sign of large empyema on CT -: had tmax of 102 overnight * . Review of Systems - Medications/Allergies Allergies/Adverse Reactions: Allergies Allergy/AdvReac Type Severity Reaction Status Date / Time No Known Allergies Allergy Verified 04/13/18 02:40 Medications: Current Medications Albuterol/Ipratropium (Duoneb) 3 ml NEB [id number] ADRIANE Docusate Sodium (Colace) 100 mg PO BID ADRIANE Last Admin: 04/13/18 08:01 Dose: 100 mg Ferrous Sulfate (Feosol) 325 mg PO BID-WM ADRIANE Last Admin: 04/13/18 08:03 Dose: 325 mg Azithromycin 500 mg/ Sodium (Chloride) 250 mls @ 250 mls/hr IVPB Q24HR ADRIANE Ceftriaxone Sodium 1 gm/ (Sodium Chloride) 100 mls @ 200 mls/hr IVPB Q24HR ADRIANE Ibuprofen (Motrin) 600 mg PO TID ADRIANE Morphine Sulfate (Morphine) 2 mg SLOW IVP Q4H PRN PRN Reason: Chest Pain/BP Elevations Simethicone (Mylicon Chewable) 80 mg PO PCHS PRN PRN Reason: Gas Pain Tramadol HCl (Ultram) 50 mg PO Q6H PRN PRN Reason: Severe Pain (7-10) Last Admin: 04/13/18 08:00 Dose: 50 mg
[2018-04-13] MEDS: Sodium Chloride 0.9% 1,000 ML IV SCH (12:29)
[2018-04-13] MEDS: Ibuprofen 600 MG TAB PO SCH ×2 (17:22→20:00)
[2018-04-13 18:18] LABS: Legionella Urinary Ag Negative (Negative); Strep pneumo Urine Ag NEGATIVE (NEGATIVE)
[2018-04-13] MEDS: Azithromycin 500 MG in Sodium Chloride 0.9% 250 ML 250 ML IVPB SCH (18:40)
[2018-04-13] MEDS: Enoxaparin Sodium 40 MG/0.4 ML SYRINGE SC SCH (19:59)
[2018-04-13] MEDS: cefTRIAXone\\ROCEPHIN 1 GM in Sodium Chloride 0.9% 100 ML IVPB SCH (20:00)
[2018-04-14] MEDS: traMADol HCl 50 MG TAB PO PRN ×3 (02:47→17:31)
[2018-04-14] MEDS: Sodium Chloride 0.9% 1,000 ML IV SCH (02:49)
[2018-04-14] MEDS: Ibuprofen 600 MG TAB PO SCH ×3 (06:05→20:01)
--- NOTE | 2018-04-14 08:09 | RAD ---
TWO VIEWS OF THE CHEST: COMPARISON: None. HISTORY: Pneumonia. FINDINGS: Two views of the chest show an enlarged cardiomediastinal silhouette. Consolidation is seen in the l eft lower lobe consistent with left lower lobe pneumonia. No other infiltrates are seen. IMPRESSION: 1. Left lower lobe pneumonia. 2. Cardiomegaly. POS: [facility]
[2018-04-14] MEDS: Ferrous Sulfate 325 MG TAB PO SCH ×2 (08:52→17:32)
[2018-04-14] MEDS: Docusate 100 MG CAP PO SCH ×2 (08:53→20:01)
--- NOTE | 2018-04-14 09:01 | CON ---
DATE OF CONSULTATION: 04/13/2018 HISTORY: A 22-year-old female speaks no Nepalese. History is obtained with a help of an dairy cattle farmer. She is 104 kilograms, presented with a blood pressure of 109/73, pulse 74, sats 90% on room air, temperature 99, and respirations 24. Left-sided severe pleuritic chest pain radiating from the back to the front with associated yellow sputum, fever, chills, and shortness of breath. Nonsmoker. No drug abuse. No alcohol abuse. CT dissection protocol was done, which showed a left-sided pneumonia. PAST MEDICAL HISTORY: Unremarkable for diabetes and hypertension. PAST SURGICAL HISTORY: Previous surgeries; none. She has had three babies recently 2 months ago with delivery here. 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 ALLERGIES: NONE. REVIEW OF SYSTEMS: A 10-point negative. PHYSICAL EXAMINATION: VITAL SIGNS: Sats are 92% on 2 L, respiratory rate 18, temperature 98, pulse 111, and blood pressure 122/81. CHEST: Revealed decreased breath sounds in left lung. Right is unremarkable. There is no wheezing or crackle. CARDIAC: Normal S1 and S2. No gallops. LABORATORY DATA: Incidentally, white count on admission was 13,000 with no left shift. Lytes were normal. IMPRESSION: 1. Left-sided pneumonia with pleurisy. 2. Morbid obesity. PLAN: She is on adequate antibiotic including ceftriaxone, Zithromax, pain relief, neb treatments. I have added Medrol for pleuritic pain. Continue with DVT prophylaxis and proton-pump inhibitors. Consultation took 70 minutes, 50% with direct patient care. Job ID: [id number]
--- NOTE | 2018-04-14 10:35 | PRG ---
DATE OF SERVICE: 04/14/2018 SUBJECTIVE: This morning, she is better, less pleuritic chest pain. OBJECTIVE: VITAL SIGNS: Temperature 98, pulse 91, sats 92 on room air, and blood pressure 130/85. GENERAL: She wants to go home. CHEST: Decreased breath sounds in left base. CARDIAC: Normal S1 and S2. No gallops. IMPRESSION: Left-sided pneumonia with small pleural effusion. PLAN: Continue present treatment. She can probably switched over to oral antibiotics, and will be discharged home in the next 24 to 48 hours. Job ID: [id number]
--- NOTE | 2018-04-14 11:02 | PDOC.PN ---
- Subjective Encounter Start Date: 04/14/18 Encounter Start Time: 08:15 Subjective: chest pain is better, is eating a bit now - Objective Resuscitation Status - Order Detail: 04/13/18 00:52 Resuscitation Status Routine Resuscitation Status: FULL: Full Resuscitation MAR Reviewed: Yes Vital Signs & Weight: Vital Signs (12 hours) Temp Pulse Resp BP BP Pulse Ox 04/14/18 08:00 98.2 F 91 18 131/85 92 L 04/14/18 00:14 111 H 16 94 L 04/14/18 00:00 98.3 F 135/78 Weight Weight 230 lb I&O: 04/13/18 04/14/18 04/15/18 06:59 06:59 06:59 Intake Total 1700 3060 Output Total 200 Balance 1700 2860 Result Diagrams: 04/13/18 04:42 04/13/18 04:42 Phys Exam - Physical Examination HEENT: PERRLA, moist MMs Neck: no JVD, supple Respiratory: no wheezing, no rales rhonchi+ Cardiovascular: RRR, no significant murmur Gastrointestinal: soft, non-tender, positive bowel sounds Musculoskeletal: no edema, pulses present Neurological: non-focal, moves all 4 limbs Psychiatric: normal affect, A&O x 3 Dx/Plan (1) PNA (pneumonia) Code(s): J18.9 - PNEUMONIA, UNSPECIFIED ORGANISM Status: Acute Qualifiers: Pneumonia type: due to unspecified organism Laterality: bilateral Lung location: lower lobe of lung Qualified Code(s): J18.1 - Lobar pneumonia, unspecified organism (2) Chest pain Code(s): R07.9 - CHEST PAIN, UNSPECIFIED Status: Acute Qualifiers: Chest pain type: chest pain on breathing Qualified Code(s): R07.1 - Chest pain on breathing; R07.81 - Pleurodynia (3) Chronic anemia Code(s): D64.9 - ANEMIA, UNSPECIFIED Status: Chronic (4) Sepsis Code(s): A41.9 - SEPSIS, UNSPECIFIED ORGANISM Status: Acute Qualifiers: Sepsis type: sepsis due to unspecified organism Qualified Code(s): A41.9 - Sepsis, unspecified organism (5) Morbid obesity Code(s): E66.01 - MORBID (SEVERE) OBESITY DUE TO EXCESS CALORIES Status: Chronic - Plan on ceftriaxone and zithromax -: steroids, motrin for pleuritic chest pain -: breast pump, is post partuum 2 months -: fever has come down, to continue i.spirometry -: to amb in [facility] * . Review of Systems - Medications/Allergies Allergies/Adverse Reactions: Allergies Allergy/AdvReac Type Severity Reaction Status Date / Time No Known Allergies Allergy Verified 04/13/18 02:40 Medications: Current Medications Albuterol/Ipratropium (Duoneb) 3 ml NEB [id number] [facility] Last Admin: 04/14/18 07:31 Dose: Not Given Docusate Sodium (Colace) 100 mg PO BID [facility] Last Admin: 04/14/18 08:53 Dose: 100 mg Enoxaparin Sodium (Lovenox) 40 mg SC 2100 [facility] Last Admin: 04/13/18 19:59 Dose: Not Given Ferrous Sulfate (Feosol) 325 mg PO BID-WM [facility] Last Admin: 04/14/18 08:52 Dose: 325 mg Azithromycin 500 mg/ Sodium (Chloride) 250 mls @ 250 mls/hr IVPB Q24HR [facility] Last Admin: 04/13/18 18:40 Dose: 250 mls Ceftriaxone Sodium 1 gm/ (Sodium Chloride) 100 mls @ 200 mls/hr IVPB 2000 [facility] Last Admin: 04/13/18 20:00 Dose: 100 mls Sodium Chloride (Normal Saline 0.9%) 1,000 mls @ 70 mls/hr IV .[id number] [facility] Last Admin: 04/14/18 02:49 Dose: 1,000 mls Ibuprofen (Motrin) 600 mg PO TID [facility] Last Admin: 04/14/18 06:05 Dose: 600 mg Methylprednisolone Sodium Succinate (Solu-Medrol) 40 mg IVP DAILY [facility] Morphine Sulfate (Morphine) 2 mg SLOW IVP Q4H PRN PRN Reason: Chest Pain/BP Elevations Last Admin: 04/13/18 12:31 Dose: 2 mg Simethicone (Mylicon Chewable) 80 mg PO [facility] PRN PRN Reason: Gas Pain Tramadol HCl (Ultram) 50 mg PO Q6H PRN PRN Reason: Severe Pain (7-10) Last Admin: 04/14/18 08:52 Dose: 50 mg
[2018-04-14] MEDS: Azithromycin 500 MG in Sodium Chloride 0.9% 250 ML 250 ML IVPB SCH (18:15)
[2018-04-14] MEDS: cefTRIAXone\\ROCEPHIN 1 GM in Sodium Chloride 0.9% 100 ML IVPB SCH (20:00)
[2018-04-14] MEDS: Enoxaparin Sodium 40 MG/0.4 ML SYRINGE SC SCH (20:01)
[2018-04-15] MEDS: traMADol HCl 50 MG TAB PO PRN ×2 (00:45→05:56)
[2018-04-15] MEDS: Sodium Chloride 0.9% 1,000 ML IV SCH (05:20)
--- NOTE | 2018-04-15 08:01 | HP ---
CHIEF COMPLAINT: Cough and chest discomfort. HISTORY OF PRESENT ILLNESS: This is a 22-year-old female with no significant past medical history, presenting with chest discomfort and shortness of breath due to cough which has been ongoing for the past couple of days prior to the day of admission. The patient stated that she has been coughing a lot with productive sputum, generalized weakness, and now, she is having chest pain that radiates to her back. The patient states that the pain is so uncomfortable and prompted ED visit. The patient stated that the severity of the pain is 10/10, sharp in nature, and is localized at the left flank, radiating to the back, nothing really makes it better. The patient did not take any medications. The patient stated that she has never had this before. The patient denies any recent travel. Stated that she travelled to [place] about 2 months ago. The patient stated that she has not been around any sick person and denies any sick contact. At this point, the patient endorses chest discomfort, shortness of breath, productive cough with sputum. Otherwise, denies any fevers, dizziness, chills, palpitations, dysuria, hematuria, hematochezia, or melena. REVIEW OF SYSTEMS: Positive for chest discomfort, shortness of breath, left flank pain, and cough. Otherwise as documented in the HPI, all other systems were reviewed and are negative. PAST MEDICAL HISTORY: No significant past medical history. PAST SURGICAL HISTORY: The patient has 3 C-sections. FAMILY HISTORY: Reviewed and noncontributory to this visit. PSYCHIATRIC HISTORY: The patient has no previous psych history. SOCIAL HISTORY: The patient denies alcohol use. The patient denies any illicit drugs. The patient denies any smoking history. The patient lives at home with , and the patient has 2 children. ALLERGIES: NO KNOWN DRUG ALLERGIES. CURRENT MEDICATIONS: No known current medications. PHYSICAL EXAMINATION: VITAL SIGNS: Blood pressure is 130/87, pulse of 120, respiratory rate of 28, temperature of 99, O2 saturation of 98 on room air. GENERAL: The patient is lying in bed, appears very fatigued, able to speak in full sentences, very pleasant. HEENT: Normocephalic and atraumatic. Pupils are equal, round, and reactive to light. Extraocular movements are intact. No scleral icterus. No conjunctival pallor. Mucous membranes are moist. NECK: Trachea is midline. No JVD. Full range of motion. No meningeal signs. LUNGS: Clear to auscultation bilaterally. No wheezing, no rales, no rhonchi appreciated. CARDIAC: Positive S1 and S2. The patient is tachycardic. No murmurs appreciated. ABDOMEN: Soft, nontender, and nondistended. Obese abdomen. Positive bowel sounds in all quadrants. EXTREMITIES: The patient has 5/5 upper extremity strength with no edema; good pulses bilaterally. Lower extremities; the patient has no edema. The patient has 5/5 lower extremity strength with good pulses bilaterally. NEUROLOGIC: Cranial nerves 2 through 12 grossly intact. No neurologic deficits noted. SKIN: Warm, dry, and intact. DIAGNOSTIC DATA: EKG shows sinus tachycardia with a rate of 123. IMAGING DATA: CT chest shows left patchy infiltrate right pneumonia. ED COURSE: The patient was given azithromycin, Rocephin, morphine, normal saline, Ativan injection, fentanyl, and Zofran. LABORATORY DATA: WBC 13.9, hemoglobin is 11.7, hematocrit is 36.6, platelet count is 361, neutrophils are 84%. Sodium is 138, potassium is 3.8, chloride is 105, carbon dioxide of 24, anion gap of 13, BUN is 11, creatinine is 0.57, glucose of 125. Lipase is 8. Troponin is less than 0.010. Legionella, negative. Strep, negative. ASSESSMENT AND PLAN: This is a 22-year-old female with no significant past medical history, being admitted for; 1. Multifocal pneumonia, most likely due to community-acquired pneumonia. At this point, we will treat the patient for atypical pneumonia, and we will continue azithromycin and Rocephin. We will continue IV fluids. We will give the patient p.r.n. medications for fever and pain. We will continue to monitor the patient closely, and we will consult Pulmonology. 2. Morbid obesity. We will advise the patient to change diet and to exercise. 3. Sinus tachycardia. At this point, we will monitor the patient's heart rate closely, and we will continue the patient on IV fluids. We will attribute the patient's sinus tachycardia due to likely sepsis. We will continue antibiotics. We will follow up on morning labs, and we will follow up on cultures. 4. Deep venous thrombosis and gastrointestinal prophylaxis. Job ID: [id number]
[2018-04-15] MEDS: Ibuprofen 600 MG TAB PO SCH (08:24)
[2018-04-15] MEDS: Ferrous Sulfate 325 MG TAB PO SCH (08:25)
[2018-04-15] MEDS: Docusate 100 MG CAP PO SCH (08:25)
--- NOTE | 2018-04-15 10:41 | PRG ---
DATE OF SERVICE: 04/15/2018 SUBJECTIVE: Selam Jennings is a 22-year-old female. This morning, she is better. No longer reporting chest pain. OBJECTIVE: VITAL SIGNS: Temperature 98, pulse , respiratory rate 18, and blood pressure 157/78. CHEST: Equal breath sounds. No wheezing. CARDIAC: Normal S1 and S2. No gallops. . IMPRESSION: Left-sided pneumonia, may be small pleural effusion, much improved. PLAN: She is going to go home on antibiotics for a week. She will see us in the office with a chest x-ray. Job ID: [id number]
[2018-04-15 11:55] VITALS: BP 131/86; TEMP 98.4
--- NOTE | 2018-04-15 12:17 | PDOC.PN ---
- Subjective Encounter Start Date: 04/15/18 Encounter Start Time: 09:00 Subjective: feels better, is eating and ambulating -: chest pain is better - Objective Resuscitation Status - Order Detail: 04/13/18 00:52 Resuscitation Status Routine Resuscitation Status: FULL: Full Resuscitation MAR Reviewed: Yes Vital Signs & Weight: Vital Signs (12 hours) Temp Pulse Resp BP BP Pulse Ox 04/15/18 11:00 98.4 F 81 18 131/86 94 L 04/15/18 07:37 98.0 F 87 18 157/78 H 95 04/15/18 07:16 100 14 Weight Weight 230 lb I&O: 04/14/18 04/15/18 04/16/18 06:59 06:59 06:59 Intake Total 3060 Output Total 200 Balance 2860 Result Diagrams: 04/13/18 04:42 04/13/18 04:42 Phys Exam - Physical Examination HEENT: PERRLA, moist MMs Neck: no JVD, supple Respiratory: no wheezing, no rales Cardiovascular: RRR, no significant murmur Gastrointestinal: soft, non-tender, positive bowel sounds Musculoskeletal: no edema, pulses present Neurological: non-focal, moves all 4 limbs Psychiatric: normal affect, A&O x 3 Dx/Plan (1) PNA (pneumonia) Code(s): J18.9 - PNEUMONIA, UNSPECIFIED ORGANISM Status: Acute Qualifiers: Pneumonia type: due to unspecified organism Laterality: bilateral Lung location: lower lobe of lung Qualified Code(s): J18.1 - Lobar pneumonia, unspecified organism (2) Chest pain Code(s): R07.9 - CHEST PAIN, UNSPECIFIED Status: Acute Qualifiers: Chest pain type: chest pain on breathing Qualified Code(s): R07.1 - Chest pain on breathing; R07.81 - Pleurodynia (3) Chronic anemia Code(s): D64.9 - ANEMIA, UNSPECIFIED Status: Chronic (4) Sepsis Code(s): A41.9 - SEPSIS, UNSPECIFIED ORGANISM Status: Resolved Qualifiers: Sepsis type: sepsis due to unspecified organism Qualified Code(s): A41.9 - Sepsis, unspecified organism (5) Morbid obesity Code(s): E66.01 - MORBID (SEVERE) OBESITY DUE TO EXCESS CALORIES Status: Chronic - Plan hemostable -: omnicef x 7 days -: to f/u with in 4 weeks with cxr -: dc pt home * .
--- NOTE | 2018-04-15 21:25 | DIS ---
DATE OF ADMISSION: 04/12/2018 DATE OF DISCHARGE: 04/15/2018 DISCHARGE DISPOSITION: To home. PRIMARY DISCHARGE DIAGNOSIS: Left lung pneumonia with pleuritic chest pain and sepsis. SECONDARY DISCHARGE DIAGNOSES: Morbid obesity and chronic anemia. PROCEDURES DONE DURING HOSPITALIZATION: The patient has had CT dissection protocol done on the day of admission, which showed no signs of dissection. There is left lung dense consolidation with minimal pleural effusion. Hepatomegaly was seen. Blood cultures x2, no growth. Respiratory cultures were contaminated. Had a white count of 15 with H and H of 10 and 33, platelet count 327, and MCV is 83. Serum test was negative. BUN 5 and creatinine 0.5. Urine for Legionella pneumophila antigen was negative. Urine for Strep pneumo antigen was negative. DISCHARGE MEDICATIONS: 1. Omnicef 300 mg p.o. twice daily for 7 days. 2. Ferrous sulfate 325 mg p.o. twice daily. 3. Albuterol inhaler q.6 hourly p.r.n. ALLERGIES: NO KNOWN DRUG ALLERGIES. INPATIENT CONSULT: Dr. Alcala for Pulmonology. DISCHARGE PLAN: The patient is to follow up with Dr. Alcala in 4 weeks with followup chest x-ray and primary care physician in 1 week. BRIEF COURSE DURING HOSPITALIZATION: The patient initially came to ER with complaints of left-sided chest pain, which was pleuritic in nature. She had an initial CT dissection protocol done, which showed dense consolidation in the left lower lobe. The patient also had a fever of 102 and was septic. She was gently hydrated. The patient is 8 weeks. She was placed on broad-spectrum IV antibiotics. Her fever broke after 48 hours. She initially had loss of appetite, but at the time of discharge, she is eating well. She is also ambulating. She is able to take nice deep breath and is using incentive spirometry at the time of discharge. The patient was counselled to continue antibiotics for another week and have a followup chest x-ray in [address] Alcala for complete resolution of her pneumonia. Job ID: [id number]
[2018-04-15 22:09] LABS: Mycoplasma pneumoniae IgG AB 166 U/mL (0-99); Mycoplasma pneumoniae IgM AB Less than 770 U/mL (0-769)
== END 2018-04-15 12:12 | disposition home or self-care (01) | DRG 871 ==
LOC: ERS 16:29 → T4-A 19:34
PROVIDERS: ADMIT Internal Medicine; ATTEND Internal Medicine
DX: A41.9 Sepsis, unspecified organism (principal); J18.1 Lobar pneumonia, unspecified organism; Z68.41 Body mass index [BMI] 40.0-44.9, adult; E66.01 Morbid (severe) obesity due to excess calories; D64.9 Anemia, unspecified; R09.1 Pleurisy
CPT/HCPCS: 36415; 71046; 71275; 80048; 82550; 82553; 83605; 83690; 84484; 84703; 85025; 87040; 87070; 87205; 87899; 93005; 94640; 96361; 96365; 96375; A4353; J0456; J0696; J1650; J2060; J2270; J2405; J2543; J2920; J3010; J7050; J7620

== ENCOUNTER 2018-04-17 08:59 | Emergency (ER) | payer OTHER ==
[2018-04-17] MEDS ORDERED: Morphine 4 MG/ML VIAL ONE (09:31)
[2018-04-17] MEDS ORDERED: Ketorolac Tromethamine 30 MG/ML VIAL ONE (09:31)
[2018-04-17 09:32] LABS: #Eosinphils 0.4 thou/uL (0.0-0.7); #Lymphocytes 2.5 thou/uL (1.20-3.40); #Monocytes 0.7 thou/uL (0.11-0.59); %Basophils 0.3 % (0.0-1.0); %Eosinophils 3.2 % (0.0-10.0); %Lymphocytes 21.6 % (21.0-51.0); %Neutrophils 68.9 % (42.0-75.0); Mean Corpuscular HGB CONC 32.1 g/dL (32.0-36.0); Mean Corpuscular Hemoglobin 26.4 pg (27.0-31.0); Mean Corpuscular Volume 82.3 fL (78.0-98.0); Mean Platelet Volume 7.1 fL (7.4-10.4); Platelet Count 532 thou/uL (130-400); RBC Distribution Width 13.3 % (11.5-14.5); Red Blood Cell (RBC) Count 4.54 mill/uL (4.20-5.40); White Blood Cell (WBC) Count 11.6 thou/uL (4.8-10.8)
[2018-04-17 09:55] LABS: ALT (SGPT) 44 U/L (8-55); AST (SGOT) 15 U/L (5-34); Albumin 4.2 g/dL (3.5-5.0); Alkaline Phosphatase 105 U/L (40-150); Anion Gap 15 mmol/L (10-20); BUN (Urea Nitrogen) 14 mg/dL (7.0-18.7); Bilirubin, Total 0.4 mg/dL (0.2-1.2); Calc. Creatinine Clearance 0 mL/min (70-130); Calcium 9.5 mg/dL (7.8-10.44); Carbon Dioxide 22 mmol/L (22-29); Chloride 105 mmol/L (98-107); Estimated GFR-MDRD Greater than 90; Glucose 91 mg/dL (70-105); Potassium 4.2 mmol/L (3.5-5.1); Protein, Total 8.2 g/dL (6.0-8.3); Sodium 138 mmol/L (136-145)
--- NOTE | 2018-04-17 10:45 | RAD ---
CHEST ONE VIEW: INDICATIONS: History of pneumonia. COMPARISON: 04/14/2018 FINDINGS/IMPRESSION: There is worsening pleural and parenchymal opacity involving the left lung base, suspicious for worse safia pneumonia and some left-sided pleural effusion. There is persistent cardiomegaly. The right maximiliano ng is clear. No acute osseous abnormality is evident. IMPRESSION: Findings suspicious for worsening pneumonia and left-sided pleural effusion. POS: [facility]
== END 2018-04-17 12:01 | disposition home or self-care (01) ==
LOC: ERS 08:59
DX: J18.9 Pneumonia, unspecified organism (principal); R09.1 Pleurisy; Z79.899 Other long term (current) drug therapy
CPT/HCPCS: 36415; 71045; 80053; 83605; 85025; 87040; 93005; 96361; 96374; 96375; J1885; J2270

== ENCOUNTER 2018-05-02 14:12 | Outpatient (CLI) | payer MEDICAID ==
--- NOTE | 2018-05-02 16:47 | RAD ---
RADIOGRAPH CHEST 2 VIEWS: Date: 05/02/2018 Time: 2:28 p.m. HISTORY: A 22-year-old female with left lower lobe pneumonia. COMPARISON: Two view study of 04/14/2018. One view study of 04/17/2018. FINDINGS: On the lateral view, the previously demonstrated left lower lobe air space opacity is no longer visua lized in that particular location, compared to 04/14/2018. On the frontal view, the opacification at the lateral aspect of the left lower lung zone apparently has significantly improved, compared to . Currently, the only residual infiltrate appears to be in the lingula, and it appears small . The transverse diameter of the cardiac shadow is increased on the frontal projection, probably due to magnification. AP diameter of the heart is normal on the lateral view. No pleural effusion, pul monary edema, or pneumothorax. IMPRESSION: Interval improvement in the left-sided pneumonia. Currently, there is a small focal residual infiltr ate or scar in the lingula. JN [] POS: [facility]
== END 2018-05-02 14:13 | disposition home or self-care (01) ==
LOC: BICRAD 14:12
PROVIDERS: ATTEND Family Medicine
DX: J18.1 Lobar pneumonia, unspecified organism (principal)
CPT/HCPCS: 71046

== ENCOUNTER 2018-05-12 18:42 | Emergency (ER) | payer OTHER, SELFPAY ==
[2018-05-12 19:19] LABS: #Eosinphils 0.3 thou/uL (0.0-0.7); #Monocytes 0.7 thou/uL (0.11-0.59); #Neutrophils 9.7 thou/uL (1.40-6.50); %Basophils 0.1 % (0.0-1.0); %Eosinophils 2.2 % (0.0-10.0); %Lymphocytes 15.8 % (21.0-51.0); %Monocytes 5.2 % (0.0-10.0); %Neutrophils 76.7 % (42.0-75.0); Hemoglobin 12.2 g/dL (12.0-16.0); Mean Corpuscular HGB CONC 31.6 g/dL (32.0-36.0); Mean Corpuscular Hemoglobin 25.8 pg (27.0-31.0); Mean Corpuscular Volume 81.6 fL (78.0-98.0); Mean Platelet Volume 7.5 fL (7.4-10.4); Platelet Count 377 thou/uL (130-400); RBC Distribution Width 13.7 % (11.5-14.5); Red Blood Cell (RBC) Count 4.73 mill/uL (4.20-5.40); White Blood Cell (WBC) Count 12.6 thou/uL (4.8-10.8)
[2018-05-12 19:37] LABS: BHCG - Serum Negative (NEGATIVE); Pregs Control Background? CLEAR/WHITE (CLR/WHITE); Pregs Control Bar Appear? YES (CONTROL BAR)
[2018-05-12 19:44] LABS: ALT (SGPT) 65 U/L (8-55); AST (SGOT) 64 U/L (5-34); Albumin 4.5 g/dL (3.5-5.0); Alkaline Phosphatase 116 U/L (40-150); Anion Gap 12 mmol/L (10-20); BUN (Urea Nitrogen) 15 mg/dL (7.0-18.7); Bilirubin, Total 0.4 mg/dL (0.2-1.2); Calc. Creatinine Clearance 0 mL/min (70-130); Calcium 9.2 mg/dL (7.8-10.44); Carbon Dioxide 25 mmol/L (22-29); Chloride 104 mmol/L (98-107); Estimated GFR-MDRD Greater than 90; Globulin 4.1 g/dL (2.4-3.5); Glucose 123 mg/dL (70-105); Lipase 12 U/L (8-78); Potassium 3.9 mmol/L (3.5-5.1); Protein, Total 8.6 g/dL (6.0-8.3); Sodium 137 mmol/L (136-145)
[2018-05-12] MEDS ORDERED: Ondansetron PF 4 MG/2 ML Vial ONE (21:40)
[2018-05-12] MEDS ORDERED: Morphine 4 MG/ML VIAL ONE (21:40)
--- NOTE | 2018-05-12 22:14 | ULT ---
RIGHT UPPER QUADRANT ABDOMINAL ULTRASOUND: 05/12/18 HISTORY: Abdominal pain with nausea and vomiting. TECHNIQUE: Multiplanar malhotra scale and color doppler images obtained in a right upper quadrant abdominal ultrasou nd. FINDINGS: The liver demonstrates increased echogenicity without focal lesions or intrahepatic ductal dilatation . The gallbladder is distended and contains echogenic shadowing foci which may represent small stones . There is no gallbladder wall thickening or pericholecystic fluid. The common bile duct is normal me asuring 4 mm. The visualized portions of the pancreas are unremarkable. the right kidney is normal in echogenicity without hydronephrosis or calculus and measures 12.0 cm in length IMPRESSION: 1. Cholelithiasis. 2. Fatty liver. POS: [facility]
[2018-05-12 22:43] LABS: Bilirubin Small (Negative); Blood, Urine Negative (Negative); Clarity CLEAR (Clear); Glucose, Urine (Dipstick) Negative (Negative); Leukocyte Trace (Negative); Nitrite Negative (Negative); Protein, Urine (Dipstick) Trace mg/dL (Neg-Trace); Specific Gravity, Urine 1.031 (1.002-1.036)
[2018-05-12 22:46] LABS: Bacteria/HPF Rare-Few HPF (None Seen); Hyaline Casts/LPF 0-3 HYALINE CAST LPF (0-3 Hyaline); Pathc Cast-AUWi Flag 0.14 (0-2.49); WBC/HPF 0-3 HPF (0-3)
== END 2018-05-12 23:25 | disposition home or self-care (01) ==
LOC: ERS 18:42
DX: K80.20 Calculus of gallbladder without cholecystitis without obstruction (principal)
CPT/HCPCS: 36415; 76705; 80053; 81003; 81015; 83690; 84703; 85025; 93005; 96361; 96374; 96375; J2270; J2405

== ENCOUNTER 2018-05-17 14:37 | Emergency (ER) | payer MEDICAID, SELFPAY ==
[2018-05-17] MEDS ORDERED: Morphine 4 MG/ML VIAL ONE (14:54)
[2018-05-17] MEDS ORDERED: Ondansetron PF 4 MG/2 ML Vial ONE (14:54)
[2018-05-17 15:08] LABS: Bilirubin Negative (Negative); Blood, Urine Negative (Negative); Clarity CLEAR (Clear); Glucose, Urine (Dipstick) Negative (Negative); Leukocyte Negative (Negative); Nitrite Negative (Negative); Protein, Urine (Dipstick) Negative (Neg-Trace); Specific Gravity, Urine 1.012 (1.002-1.036); Urobilinogen 0.2 mg/dL (0.2-1.0); pH, Urine 6.5 (5.0-9.0)
[2018-05-17 15:27] LABS: #Eosinphils 0.2 thou/uL (0.0-0.7); #Monocytes 0.5 thou/uL (0.11-0.59); #Neutrophils 5.9 thou/uL (1.40-6.50); %Basophils 0.3 % (0.0-1.0); %Eosinophils 2.7 % (0.0-10.0); %Monocytes 6.1 % (0.0-10.0); %Neutrophils 67.9 % (42.0-75.0); Hemoglobin 13.2 g/dL (12.0-16.0); Mean Corpuscular HGB CONC 32.2 g/dL (32.0-36.0); Mean Corpuscular Hemoglobin 26.3 pg (27.0-31.0); Mean Corpuscular Volume 81.7 fL (78.0-98.0); Mean Platelet Volume 7.6 fL (7.4-10.4); Platelet Count 374 thou/uL (130-400); RBC Distribution Width 14.1 % (11.5-14.5); Red Blood Cell (RBC) Count 5.04 mill/uL (4.20-5.40); White Blood Cell (WBC) Count 8.6 thou/uL (4.8-10.8)
[2018-05-17 15:48] LABS: ALT (SGPT) 86 U/L (8-55); AST (SGOT) 27 U/L (5-34); Albumin 4.8 g/dL (3.5-5.0); Alkaline Phosphatase 116 U/L (40-150); Anion Gap 13 mmol/L (10-20); BUN (Urea Nitrogen) 10 mg/dL (7.0-18.7); Bilirubin, Total 0.5 mg/dL (0.2-1.2); Calc. Creatinine Clearance 0 mL/min (70-130); Calcium 9.5 mg/dL (7.8-10.44); Carbon Dioxide 20 mmol/L (22-29); Chloride 107 mmol/L (98-107); Estimated GFR-MDRD Greater than 90; Globulin 4.4 g/dL (2.4-3.5); Glucose 95 mg/dL (70-105); Lipase 9 U/L (8-78); Potassium 4.2 mmol/L (3.5-5.1); Protein, Total 9.2 g/dL (6.0-8.3); Sodium 136 mmol/L (136-145)
== END 2018-05-17 17:03 | disposition home or self-care (01) ==
LOC: ERS 14:37
DX: K80.50 Calculus of bile duct without cholangitis or cholecystitis without obstruction (principal)
CPT/HCPCS: 80053; 81003; 83690; 85025; 96361; 96374; 96375; J2270; J2405

== ENCOUNTER 2018-05-25 15:26 | Inpatient (IN) | payer SELFPAY ==
[2018-05-25] MEDS ORDERED: Ondansetron PF 4 MG/2 ML Vial IVP PRN (16:43)
[2018-05-25] MEDS ORDERED: Piperacillin/Tazobactam 3.375 GM in Sodium Chloride 0.9% 100 ML IVPB SCH (16:45)
[2018-05-25] MEDS: Sodium Chloride 0.9% 1,000 ML IV SCH (17:05)
[2018-05-25] MEDS: Morphine 4 MG/ML VIAL SLOW IVP PRN (17:06)
[2018-05-25 17:27] LABS: #Eosinphils 0.1 thou/uL (0.0-0.7); #Lymphocytes 2.1 thou/uL (1.20-3.40); #Monocytes 0.5 thou/uL (0.11-0.59); #Neutrophils 5.6 thou/uL (1.40-6.50); %Basophils 0.5 % (0.0-1.0); %Eosinophils 1.5 % (0.0-10.0); %Lymphocytes 24.7 % (21.0-51.0); %Monocytes 6.3 % (0.0-10.0); Hemoglobin 11.5 g/dL (12.0-16.0); Mean Corpuscular HGB CONC 32.8 g/dL (32.0-36.0); Mean Corpuscular Hemoglobin 26.9 pg (27.0-31.0); Mean Platelet Volume 7.7 fL (7.4-10.4); Platelet Count 379 thou/uL (130-400); RBC Distribution Width 13.6 % (11.5-14.5); Red Blood Cell (RBC) Count 4.26 mill/uL (4.20-5.40); White Blood Cell (WBC) Count 8.4 thou/uL (4.8-10.8)
[2018-05-25 17:56] LABS: ALT (SGPT) 24 U/L (8-55); AST (SGOT) 11 U/L (5-34); Albumin 4.3 g/dL (3.5-5.0); Alkaline Phosphatase 92 U/L (40-150); Anion Gap 13 mmol/L (10-20); BUN (Urea Nitrogen) 5 mg/dL (7.0-18.7); Bilirubin, Direct 0.2 mg/dL (0.1-0.3); Bilirubin, Total 0.4 mg/dL (0.2-1.2); Calc. Creatinine Clearance 0 mL/min (70-130); Carbon Dioxide 20 mmol/L (22-29); Chloride 106 mmol/L (98-107); Estimated GFR-MDRD Greater than 90; Globulin 3.4 g/dL (2.4-3.5); Glucose 100 mg/dL (70-105); Potassium 3.6 mmol/L (3.5-5.1); Protein, Total 7.7 g/dL (6.0-8.3); Sodium 135 mmol/L (136-145)
[2018-05-25 18:46] VITALS: BMI 40.7
[2018-05-25] MEDS ORDERED: Acetaminophen 500 MG in Premix Bag 1 BAG IVPB PRN (21:47)
[2018-05-25] MEDS: Acetaminophen 325 MG TAB PO PRN (22:05)
[2018-05-26] MEDS: Morphine 4 MG/ML VIAL SLOW IVP PRN ×2 (02:20→08:14)
[2018-05-26] MEDS: Sodium Chloride 0.9% 1,000 ML IV SCH ×4 (02:20→23:19)
--- NOTE | 2018-05-26 08:46 | HP ---
CHIEF COMPLAINT: Right upper quadrant abdominal pain. HISTORY OF PRESENT ILLNESS: The patient is a 22-year-old female who has a 2-week history of right upper quadrant pain radiating to back, associated nausea and vomiting. She has been to the emergency room twice. She is having trouble keeping fluids down. PAST MEDICAL HISTORY: Otherwise, just obesity. PAST SURGICAL HISTORY: She had a x3. MEDICATIONS: Include she is on a pain medication. ALLERGIES: SHE HAS NO KNOWN DRUG ALLERGIES. FAMILY HISTORY: Father has diabetes. Mother alive in good health. SOCIAL HISTORY: She is , has 3 children. No tobacco. No alcohol. PHYSICAL EXAMINATION: VITAL SIGNS: Height 58, weight 232, body mass index 48.4. GENERAL: She is obese female, holding her right abdomen in pain. HEENT: No jaundice. LUNGS: Clear. HEART: Regular rate and rhythm. ABDOMEN: Soft, very tender in the right upper quadrant with a positive Barraza sign. There are no palpable masses or hernias. EXTREMITIES: Good pulses. No pedal edema. ASSESSMENT: Acute cholecystitis. PLAN: Recommended admit IV fluids, IV antibiotics, lap choly. Job ID: [id number]
[2018-05-26] MEDS ORDERED: Bupivacaine/Epinephrine 0.25% 30 ML VIAL ONE (11:05)
[2018-05-26] MEDS ORDERED: Fentanyl 100 MCG/2 ML VIAL ONE ×4 (11:30→14:39)
[2018-05-26] MEDS ORDERED: Midazolam HCl 2 mg/2 ml Vial ONE (11:30)
[2018-05-26] MEDS ORDERED: Piperacillin/Tazobactam 3.375 GM in Sodium Chloride 0.9% 100 ML IVPB SCH (11:45)
[2018-05-26] MEDS ORDERED: HYDROcodone/Acetaminophen 10/325 mg Tablet PO PRN (13:20)
[2018-05-26] MEDS ORDERED: Calcium Carbonate 500 MG ChewTAB PO PRN (13:20)
[2018-05-26] MEDS ORDERED: Morphine 4 MG/ML VIAL SLOW IVP PRN (13:20)
[2018-05-26] MEDS ORDERED: Morphine 2 MG/ML SYRINGE SLOW IVP PRN (13:20)
[2018-05-26] MEDS ORDERED: Dextrose 5% in Water 1,000 ML IV PRN (13:20)
[2018-05-26] MEDS ORDERED: Dextrose 50% Abboject 50 ML SYRINGE SLOW IVP PRN (13:20)
[2018-05-26] MEDS ORDERED: hydrALAZINE 20 MG/ML VIAL SLOW IVP PRN (13:20)
[2018-05-26] MEDS ORDERED: Ondansetron PF 4 MG/2 ML Vial IVP PRN (13:20)
[2018-05-26] MEDS ORDERED: Promethazine HCl 25 MG/ML VIAL IM PRN ×2 (13:20→13:30)
[2018-05-26] MEDS ORDERED: Mag-Al 1200 mg/1200 mg/30 ML UDCUP PO PRN (13:20)
[2018-05-26] MEDS ORDERED: Ondansetron HCl/PF 4 MG/2 ML Vial IVP PRN (13:30)
[2018-05-26] MEDS ORDERED: Promethazine HCl 25 MG/ML VIAL SLOW IVP PRN (13:30)
[2018-05-26] MEDS ORDERED: Promethazine HCl 25 MG/ML VIAL ONE (13:36)
[2018-05-26] MEDS ORDERED: Ketorolac Tromethamine 30 MG/ML VIAL ONE (14:03)
[2018-05-26] MEDS ORDERED: Ondansetron PF 4 MG/2 ML Vial ONE (14:07)
--- NOTE | 2018-05-26 14:34 | OP ---
DATE OF PROCEDURE: 05/26/2018 PREOPERATIVE DIAGNOSIS: Early acute cholecystitis. PROCEDURE PERFORMED: Laparoscopic cholecystectomy. INDICATIONS: A 22-year-old female, who has been in the emergency room twice with a third episode of severe right upper quadrant pain radiating to back, associated with nausea and severe tenderness. Ultrasound showing cholelithiasis. FINDINGS: She had a slightly thickened wall of the gallbladder. The cystic duct was of small caliber. She had a fatty appearing liver. DESCRIPTION OF PROCEDURE: After informed consent was obtained, the patient was taken to the operating room and given general endotracheal anesthesia, placed in supine position. Abdomen was prepped and draped in usual fashion. Local anesthesia was infiltrated subcutaneously and deep, and an upper midline incision was performed. Subcu divided sharply. She was extremely obese. It was probably about 6-inch at least 12 cm depth from the skin to the fascia, eventually got down to the fascia. This fascia was grasped and two stay sutures of 0 Vicryl placed in each side of midline. Midline incised. Digital palpation revealed no local adhesions. A blunt 10/12 mm trocar inserted. Pneumoperitoneum was created to a pressure of 15 mmHg. A 0-degree laparoscope was inserted under direct vision. Three 5-mm ports were placed subcostally. The gallbladder was grasped and advanced superiorly. Peritoneum lysed distally to expose the cystic duct, artery, and critical view. These were triply ligated with hemoclips and divided. The gallbladder removed from its fossa utilizing electrocautery, removed from the abdomen through the umbilical port. Hemostasis assured. Trocars and retractors removed. The fascia was closed with interrupted 0 Vicryl suture. The skin closed with interrupted 4-0 Rapide. Dermabond applied. The patient tolerated the procedure well, transferred to Recovery in good condition. Sponge and needle count verified correct x2. Job ID: [id number]
[2018-05-26] MEDS: Ketorolac Tromethamine 30 MG/ML VIAL IVP SCH ×2 (17:38→23:19)
[2018-05-26] MEDS: HYDROcodone/Acetaminophen 10/325 mg Tablet PO PRN (19:35)
[2018-05-26] MEDS: Famotidine 20 MG TAB PO SCH (19:35)
[2018-05-26] MEDS: Famotidine/PF 20 mg/2ml Vial SLOW IVP SCH (19:36)
[2018-05-27] MEDS: HYDROcodone/Acetaminophen 10/325 mg Tablet PO PRN ×2 (02:07→07:42)
[2018-05-27] MEDS: Ketorolac Tromethamine 30 MG/ML VIAL IVP SCH ×2 (05:32→11:41)
[2018-05-27 06:25] LABS: #Eosinphils 0.2 thou/uL (0.0-0.7); #Lymphocytes 1.7 thou/uL (1.20-3.40); #Monocytes 0.4 thou/uL (0.11-0.59); %Basophils 0.7 % (0.0-1.0); %Eosinophils 3.4 % (0.0-10.0); %Lymphocytes 32.6 % (21.0-51.0); %Monocytes 7.1 % (0.0-10.0); %Neutrophils 56.3 % (42.0-75.0); Hemoglobin 10.3 g/dL (12.0-16.0); Mean Corpuscular HGB CONC 31.9 g/dL (32.0-36.0); Mean Corpuscular Hemoglobin 26.3 pg (27.0-31.0); Mean Corpuscular Volume 82.5 fL (78.0-98.0); Mean Platelet Volume 7.3 fL (7.4-10.4); Platelet Count 315 thou/uL (130-400); RBC Distribution Width 13.6 % (11.5-14.5); Red Blood Cell (RBC) Count 3.92 mill/uL (4.20-5.40); White Blood Cell (WBC) Count 5.3 thou/uL (4.8-10.8)
[2018-05-27] MEDS: Sodium Chloride 0.9% 1,000 ML IV SCH (06:47)
[2018-05-27 06:50] LABS: ALT (SGPT) 46 U/L (8-55); AST (SGOT) 42 U/L (5-34); Albumin 3.7 g/dL (3.5-5.0); Alkaline Phosphatase 97 U/L (40-150); Anion Gap 12 mmol/L (10-20); BUN (Urea Nitrogen) 6 mg/dL (7.0-18.7); Bilirubin, Total 0.5 mg/dL (0.2-1.2); Calc. Creatinine Clearance 242 mL/min (70-130); Calcium 8.3 mg/dL (7.8-10.44); Carbon Dioxide 23 mmol/L (22-29); Chloride 107 mmol/L (98-107); Estimated GFR-MDRD Greater than 90; Glucose 87 mg/dL (70-105); Lipase 10 U/L (8-78); Potassium 3.9 mmol/L (3.5-5.1); Protein, Total 6.7 g/dL (6.0-8.3); Sodium 138 mmol/L (136-145)
[2018-05-27] MEDS ORDERED: Enoxaparin Sodium 40 MG/0.4 ML SYRINGE SC SCH (09:00)
[2018-05-27] MEDS: Famotidine 20 MG TAB PO SCH (09:36)
[2018-05-27] MEDS: Famotidine/PF 20 mg/2ml Vial SLOW IVP SCH (09:36)
[2018-05-27] MEDS: Acetaminophen 325 MG TAB PO PRN (09:41)
[2018-05-27 11:25] VITALS: BP 127/79; TEMP 97.8
--- NOTE | 2018-05-28 07:28 | DIS ---
DATE OF ADMISSION: 05/25/2018 DATE OF DISCHARGE: 05/27/2018 DISCHARGE DIAGNOSIS: Severe biliary colic. PROCEDURES DURING ADMISSION: Laparoscopic cholecystectomy. HOSPITAL COURSE: The patient was admitted, given IV fluids, taken to the operating room, where she underwent a laparoscopic cholecystectomy. Postoperatively, she had quite a bit of nausea requiring another night in the hospital. She is doing much better now. She is tolerating liquids well. Pain is controlled on p.o. medications. She is afebrile. She is discharged home on hydrocodone and Zofran. She will follow up with me in 2 weeks. Job ID: [id number]
== END 2018-05-27 12:00 | disposition home or self-care (01) | DRG 419 ==
LOC: SURG B 15:58
PROVIDERS: ADMIT Surgery; ATTEND Surgery
PROC: 0FT44ZZ Resection of Gallbladder, Percutaneous Endoscopic Approach (ICD-10-PCS; principal; 2018-05-26)
DX: K81.0 Acute cholecystitis (principal); Z98.890 Other specified postprocedural states
CPT/HCPCS: 36415; 80053; 80076; 83690; 85025; 88304; 90471; 90686; G0008; J1885; J2250; J2270; J2405; J2543; J2550; J3010; J7050